=== PATIENT | female | born 1930 | race Caucasian/White ===

== ENCOUNTER 2020-07-31 08:44 | Outpatient (CLI) | payer MEDICARE, BC | END 2020-07-31 08:45 | disposition home or self-care (01) | LOC: CSHCT 08:44 | PROVIDERS: ATTEND Internal Medicine Gastroenterology | DX: R13.10 Dysphagia, unspecified (principal); K21.9 Gastro-esophageal reflux disease without esophagitis; R14.0 Abdominal distension (gaseous); K44.9 Diaphragmatic hernia without obstruction or gangrene; K31.9 Disease of stomach and duodenum, unspecified; K57.90 Diverticulosis of intestine, part unspecified, without perforation or abscess without bleeding | CPT/HCPCS: 74177; 82565 ==